=== PATIENT | male | born 1950 | race Caucasian/White ===

== ENCOUNTER 2018-10-06 11:45 | Day surgery (SDC) | payer MEDICARE, OTHER ==
[~2018-10-06] VITALS: Ht 182.9 cm; Wt 114.8 kg
[~2018-10-06 11:45] MED LIST: AMLODIPINE-VAL1 EAC1 PO; ASPI325 PO; ASPI81CH PO; Altoprev20 MG PO; GLIM2 PO; INVOKANA300 MG PO; METF500 PO
== END 2018-10-06 13:55 | disposition home or self-care (01) ==
LOC: ORSCSDS 11:45
PROVIDERS: Internal Medicine Gastroenterology
PROC: 0DB88ZX Excision of Small Intestine, Via Natural or Artificial Opening Endoscopic, Diagnostic (ICD-10-PCS; principal; 2018-10-06 13:00)
PROC: 0DB58ZX Excision of Esophagus, Via Natural or Artificial Opening Endoscopic, Diagnostic (ICD-10-PCS; principal; 2018-10-06 13:00)
PROC: 0D758ZZ Dilation of Esophagus, Via Natural or Artificial Opening Endoscopic (ICD-10-PCS; principal; 2018-10-06 13:00)
DX: K21.9 Gastro-esophageal reflux disease without esophagitis (principal); R11.2 Nausea with vomiting, unspecified; I10 Essential (primary) hypertension; E66.9 Obesity, unspecified; Z68.34 Body mass index [BMI] 34.0-34.9, adult; Z79.82 Long term (current) use of aspirin; Z79.84 Long term (current) use of oral hypoglycemic drugs; Z79.899 Other long term (current) drug therapy
CPT/HCPCS: 82947; 87081; 88305; J2250; J7120

== ENCOUNTER 2021-02-20 08:02 | Day surgery (SDC) | payer MEDICARE ==
[~2021-02-20] VITALS: Ht 182.9 cm; Wt 110.4 kg
--- NOTE | 2021-02-20 09:35 | NUR ---
02/20/21 0935 Beverly Mendoza PER PT. HE DOESN'T TOLERATED USING A CPAP. PT. DOESN'T USE O2.
== END 2021-02-20 11:00 | disposition home or self-care (01) ==
LOC: ORSCSDS 08:02
PROVIDERS: Internal Medicine Gastroenterology
PROC: 0DBH8ZX Excision of Cecum, Via Natural or Artificial Opening Endoscopic, Diagnostic (ICD-10-PCS; principal; 2021-02-20 09:45)
PROC: 0DBM8ZX Excision of Descending Colon, Via Natural or Artificial Opening Endoscopic, Diagnostic (ICD-10-PCS; principal; 2021-02-20 09:45)
DX: Z12.11 Encounter for screening for malignant neoplasm of colon (principal); Z86.010 Personal history of colon polyps; D12.0 Benign neoplasm of cecum; D12.4 Benign neoplasm of descending colon; K57.30 Diverticulosis of large intestine without perforation or abscess without bleeding; K64.8 Other hemorrhoids; G47.33 Obstructive sleep apnea (adult) (pediatric); E11.9 Type 2 diabetes mellitus without complications; E78.5 Hyperlipidemia, unspecified; I10 Essential (primary) hypertension; Z79.899 Other long term (current) drug therapy; Z79.82 Long term (current) use of aspirin; Z79.84 Long term (current) use of oral hypoglycemic drugs
CPT/HCPCS: 82947; 88305; J2704; J7120

== ENCOUNTER 2023-06-30 11:23 | Emergency (ER) | payer MEDICARE ==
[~2023-06-30] VITALS: Ht 182.9 cm; Wt 108.0 kg
[2023-06-30 11:34] VITALS: BP 123/90
[2023-06-30] MEDS ORDERED: Norco 5-325 Ta1 EACH PO (12:55)
== END 2023-06-30 13:08 | disposition home or self-care (01) ==
LOC: ER 11:23
DX: S39.012A Strain of muscle, fascia and tendon of lower back, initial encounter (principal); Z88.0 Allergy status to penicillin; Z88.2 Allergy status to sulfonamides; Z88.4 Allergy status to anesthetic agent; Z79.84 Long term (current) use of oral hypoglycemic drugs; Z79.899 Other long term (current) drug therapy; X50.0XXA Overexertion from strenuous movement or load, initial encounter
CPT/HCPCS: 99283; A9270

== ENCOUNTER 2023-07-22 06:08 | Inpatient (IN) | payer MEDICARE ==
[~2023-07-22] VITALS: Ht 182.9 cm; Wt 100.6 kg
[~2023-07-22 06:08] MED LIST changes: +Norco 5-325 Ta1 EACH PO
[2023-07-22 06:42] LABS: BASOPHILS ABSOLUTE AUTO 0.13 K/mm3 (0.00-0.23); BASOPHILS PERCENT AUTO 1 % (0-2); EOSINOPHILS ABSOLUTE AUTO 0.06 K/mm3 (0.00-0.68); EOSINOPHILS PERCENT AUTO 0 % (0-6); Hematocrit 49.7 % (37.0-53.0); Hemoglobin 17.5 g/dL (13.5-17.5); IMMATURE GRAN ABSOLUTE AUTO 0.14 K/mm3 (0.00-0.10); IMMATURE GRAN PERCENT AUTO 1 % (0-1); LYMPHOCYTES PERCENT AUTO 16 % (21-46); MONOCYTES ABSOLUTE AUTO 1.69 K/mm3 (0.16-1.47); MONOCYTES PERCENT AUTO 8 % (4-13); Mean Corpuscular HGB 30.2 pg (26.0-34.0); Mean Corpuscular HGB Conc 35.2 g/dL (31.5-36.5); Mean Corpuscular Volume 86 fL (80-100); Mean Platelet Volume 9.4 fL (9.1-12.4); NEUTROPHILS ABSOLUTE AUTO 16.07 K/mm3 (1.96-9.15); NEUTROPHILS PERCENT AUTO 75 % (41-73); Platelet Count 328 K/mm3 (150-400); RDW Coefficient Variation 12.4 % (11.7-14.2); RDW Standard Deviation 38.3 fL (35.1-46.3); White Blood Cell Count 21.59 K/mm3 (4.00-11.30)
[2023-07-22 07:04] LABS: Albumin, Blood 3.9 g/dL (3.4-5.0); Bun/Creatinine Ratio 23.7 (12.0-20.0); Calcium, Blood 9.2 mg/dL (8.5-10.1); Creatinine, Blood 1.39 mg/dL (0.60-1.20); Globulin, Blood 4.1 g/dL (2.2-4.0); Potassium, Blood 3.8 mmol/L (3.5-5.5)
[2023-07-22] MEDS ORDERED: PRAVASTATIN SOD20 MG PO (09:47)
[2023-07-22] MEDS ORDERED: TRULICITY0.75 MG/01 SQ (09:47)
[2023-07-22] MEDS ORDERED: DULO30 PO (09:48)
[2023-07-22] MEDS ORDERED: TAMSULOSIN HCL0.4 M1 PO (09:48)
[2023-07-22] MEDS ORDERED: GLIM4 PO (09:49)
[2023-07-22 13:51] LABS: Source, Urine Clean Catch
[2023-07-22 13:58] LABS: Appearance, Urine Clear (Clear); Bilirubin, Urine Neg (Neg); Blood, Urine Neg (Neg); Color, Urine Yellow (P-Yellow); Glucose Qualitative, Urine 2+ (Neg); Ketones, Urine Neg (Neg); Leukocyte Esterase, Urine 2+ (Neg); Nitrite, Urine Neg (Neg); Protein, Urine 1+ (Neg); Urobilinogen, Urine NORM (Normal)
[2023-07-22 14:11] LABS: Bacteria Few /hpf; Red Blood Cells, Urine 0-2 /hpf (0-2); Squamous Epithelial Cells Few /hpf (Few); Transitional Epithelial Cells Rare /hpf (0-Rare)
[2023-07-22 16:08] VITALS: BP 109/64
[2023-07-22] MEDS ORDERED: OMEP20ER PO (16:34)
[2023-07-22] MEDS ORDERED: Glucotrol10 MG PO (16:35)
[2023-07-22] MEDS ORDERED: BASAGLAR K100 UNIT/1 SC (16:39)
--- NOTE | 2023-07-22 17:56 | NUR ---
PT ADMITTED THIS EVENING TO PCU O7 FROM THE ER. THIS PT IS A&OX4, CALLS APPROPRITELY, AND WAS ABLE TO ANSWERT ALL OF HIS MEDICAL HX QUESTIONS. I DID HAVE TO TALK TO HIS NBA FOR AN UPDATED MEDICATION IST, AND DR. SMITH WAS NOTIFIED ONCE THE MEDICATIONS WERE RECONCILED. THE PT WAS STARTED ON ROCEPHIN FOR ANTIBIOTICS, BTU HE DOSE REPORT A CHILD COTTER ALLERGY TO PENICILLINS. I CALLED PHARMACY AND THEY STATED THAT ROCEPHIN SHOULD BE FINE BECAUSE IT IS DISTANT FROM PENICILLIN AND THE PT REPORTED HAVING NO REACTION TO AMOXICILLIN. SINCE BEING IN PCU THE PT HAS NOT HAD ANY ANGINA, ON TELE HE HAS BEEN ST 100'S. WHEN TAKING A DEEP BREATH HE HAD A SHARP PAIN IN HIS CHEST BUT THAT WAS RELATED TO TAKING A DEEP BREATHING. PT DENIES ANY SOB AND IS ON RA, SP02 >90%. HE WILL BE NPO AT 0000, BESIDES ICE CHIPS FOR A STRESS TEST TOMORROW. PT NOTIFIED.
[2023-07-22 20:32] VITALS: BP 129/74
[2023-07-22 23:47] VITALS: BP 103/75
[2023-07-23] VITALS (16 sets, daily range): BP systolic 99–144; BP diastolic 65–108
[2023-07-23 01:27] LABS: BASOPHILS ABSOLUTE AUTO 0.08 K/mm3 (0.00-0.23); BASOPHILS PERCENT AUTO 1 % (0-2); EOSINOPHILS ABSOLUTE AUTO 0.06 K/mm3 (0.00-0.68); EOSINOPHILS PERCENT AUTO 0 % (0-6); Hematocrit 42.2 % (37.0-53.0); Hemoglobin 14.9 g/dL (13.5-17.5); IMMATURE GRAN ABSOLUTE AUTO 0.11 K/mm3 (0.00-0.10); IMMATURE GRAN PERCENT AUTO 1 % (0-1); LYMPHOCYTES ABSOLUTE AUTO 2.64 K/mm3 (0.84-5.20); LYMPHOCYTES PERCENT AUTO 16 % (21-46); MONOCYTES ABSOLUTE AUTO 1.57 K/mm3 (0.16-1.47); MONOCYTES PERCENT AUTO 10 % (4-13); Mean Corpuscular HGB 30.4 pg (26.0-34.0); Mean Corpuscular HGB Conc 35.3 g/dL (31.5-36.5); Mean Corpuscular Volume 86 fL (80-100); Mean Platelet Volume 9.5 fL (9.1-12.4); NEUTROPHILS ABSOLUTE AUTO 12.05 K/mm3 (1.96-9.15); NEUTROPHILS PERCENT AUTO 73 % (41-73); Platelet Count 252 K/mm3 (150-400); RDW Coefficient Variation 12.3 % (11.7-14.2); RDW Standard Deviation 38.4 fL (35.1-46.3); White Blood Cell Count 16.51 K/mm3 (4.00-11.30)
[2023-07-23 01:53] LABS: Bun/Creatinine Ratio 26.7 (12.0-20.0); Calcium, Blood 8.5 mg/dL (8.5-10.1); Creatinine, Blood 1.46 mg/dL (0.60-1.20); Potassium, Blood 3.6 mmol/L (3.5-5.5)
--- NOTE | 2023-07-23 02:16 | NUR ---
PHYSICIAN COMMUNICATION CONTACTED ROADABILITY MACHINE OPERATOR RESIDENT, DR Hallman, TO NOTIFY HER THAT THE PATIENT CONVERTED FROM SINUS RHYTHM TO AFIB AT 0149 AND HTAT THE PATIENT'S HEART RATE HAS BEEN SUSTAINING IN THE 130'S. DR Ramos ORDERED A ONE TIME DOSE OF 5 MG IV LOPRESSOR.
--- NOTE | 2023-07-23 03:48 | NUR ---
PHYSICIAN COMMUNICATION CONTACTED DOG WARDEN RESIDENT, DR Hallman, AT 0241 TO NOTIFY HER THAT THIS RN ADMINISTERED THE 5 MG IV LOPRESSOR ABOUT 15 MINUTES PRIOR AND THAT THE PATIENT'S HEART RATE HAD REMAINED UNCHANGED AND PATIENT'S HEART RATE WAS STABLE. DR Ramos ORDERED ANOTHER ONE TIME DOSE OF 5 MG LOPRESSOR AND AN EKG. EKG VERIFIED THE PATIENT IS IN AFIB WITH RVR, SECOND DOSE OF LOPRESSOR ADMINISTERED AT [address]. CALL[address] DR Ramos AGAIN AROUND O345 TO NOTIFY HER OF THE RESULT OF THE EKG AND THAT THE SECOND DOSE OF LOPRESSOR WAS AGAIN INEFFECTIVE FOR THE PATIENT'S HEART RATE, STILL AVERAGING IN THE 130'S, AND THAT THE PATIENT'S BLOOD PRESSURE WAS 108/86. PATIENT CONTINUES TO BE ASYMPTOMATIC. DR Hallman DID NOT FEEL COMFORTABLE WITH ORDERING MORE MEDICATION SHE DOESN'T WANT THE PATIENT'S BLOOD PRESSURE TO DROP FURTHER AND TO CONTINUE TO MONITOR THE PATIENT FOR NOW. SHE ALSO SAID TO NOTIFY IF THE HEART RATE INCREASES.
--- NOTE | 2023-07-23 05:49 | NUR ---
PHYSICIAN COMMUNICATION CONTACTED RECREATION PROGRAM COORDINATOR RESIDENT, DR Hallman, TO NOTIFY HER THAT THE PATIENT'S HEART RATE IS SUSTAINING IN THE 140'S WITH BP OF 115/75. ALSO INFORMED HER THAT THE PATIENT'S CHEST PAIN HAS CHANGED FROM ONLY OCCURRING WITH DEEP BREATHS TO CONSTANT. DR Ramos SAID TO ADMINISTER THE PATIENT'S PRN MORPHINE. ASKED DR Hallman IF SHE WAS GOING TO ORDER SOMETHING FOR THE PATIENT'S HEART RATE AND SHE SAID NO, THAT SHE DIDN'T WANT TO TANK THE PATIENT'S BLOOD PRESSURE.
--- NOTE | 2023-07-23 06:14 | NUR ---
PHYSICIAN COMMUNICATION CONTACTED DR CUENCA TO UPDATE HIM ON THE PATIENT'S HEART RATE AND WHAT HAS BEEN TRIED THUS FAR. INFORMED HIM THAT THE PATIENT'S CHEST PAIN HAS GONE FROM OCCURRING ONLY WHEN HE TAKES A DEEP BREATH TO CONSTANT AND THAT THE PATIENT HAS REQUIRED TWO DOSES OF MORPHINE FOR THE PAIN. THAT THE PATIENT IS SCHEDULED FOR A STRESS TEST THIS MORNING WELL. DR CUENCA SAID HE WOULD LOOK UP THE PATIENT AND INPUT ORDERS.
--- NOTE | 2023-07-23 07:20 | NUR ---
I CALLED DR. SMITH ABOUT THE PT CONVERTING TO AFIB RVR AND ANGINA. SHE WANTS TO DO A REPEAT TROPONIN AND SHE IS GOING TO TALK TO DR. FENTON THIS AM. DR. SMITH STATED SHE IS GOING TO MAKE SOME MEDICATION CHANGES TO THE EMAR. SEE NOTES FOR ANY UPDATES.
[2023-07-23 08:33] LABS: Magnesium, Blood 2.3 mg/dL (1.6-2.4); Thyroid Stimulating Hormone 1.35 uIU/mL (0.360-4.800)
--- NOTE | 2023-07-23 11:03 | NUR ---
I CALLED DR. SMITH ABOUT PT'S HR SUSTAINING 90'S-100'S SHE SAID SHE DOESNT WANT TO SWITCH TO PO CARDIZEM BECAUSE SHE IS HOPING THE METOPROLOL WILL HOLD THE HR. SHE WANTS US HOLD THE CARDIZEM FOR NOW AND RESTART IT IF THE HR STARTS TACHING BACK UP.
--- NOTE | 2023-07-23 12:49 | NUR ---
PT'S HR ELEVATES W/ ACTIVITY HE AMBULATED TO THE BATHROOM AND HIS HR TOUCHED TO THE 140'S. DR. SMITH CAME TO CHECK ON THE PT AT THIS TIME AND DID NOT WANT HIM BACK ON THE CARDIZE BUT DID WANT A ONE TIME ORDER OF 25MG METOPROLOL SUCCINATE NOW. DR. SMITH SAID THAT WE WILL DO A ONE DAY STRESS TEST TOMORROW AND THE PT WILL BE NPO AT 0000. RODOLFO FROM [facility] SAID THE PT WILL BE INJECTED AT 0800.
--- NOTE | 2023-07-23 14:57 | NUR ---
PT CONVERTED AFIB TO SR ABOUT 1450 THIS AFTERNOON.
--- NOTE | 2023-07-23 17:45 | NUR ---
SPOKE WITH DR SMITH IN PERSON ABOUT MEDS. DR. SMITH CAME TO CHECK ON THE PT AND SHE WAS INFORMED THAT HE CONVERTED TO SR AT ABOUT 1500. SHE WANTED TO SE WHAT HIS HR DID WHEN HE AMBULATED AND TOLD ME TO D/C TO CARDIZEM IF HIS HR WAS UNCHANGED. I AMBULATED THE PT AROUND HIS ROOM AND HAD HIM IND USE THE URINAL IN THE BATHROOM AND HIS HR TOUCH 105 MAX W/ NO REPORTS OF ANGINA. PER MD ORDERS THE PO CARDIZEM WAS D/C'D. IT WAS ONLY ORDERED BECAUSE SHE WAS UNDER THE IMPRESSION THE PT WAS STILL ON THE CARDIZEM GTT AND STILL IN AFIB RVR. THE PLAN IS STILL FOR THE STRESS TEST TOMORROW.
--- NOTE | 2023-07-23 17:51 | NUR ---
SHIFT SUMMARY PT IS A&OX4, CALLS APPROPRAITELY, AND MAKES NEEDS KNOWN. WE HAVE HAD NO ANGINA TODAY AND ARE IN SR 80'S-90'S ON TELE. WE CONVERTED TO SR FROM AFIB ABOUT 1500. WE HAVE HAVE A FEW MEDICATION CHANGES, SEE PREVIOUS NOTES AND EMAR FOR MORE INFORMATION. THE PLAN IS FOR NPO AT 0000 AND STRESS TEST 12/8. THEY ARE GOING TO DO A ONE DAY STRESS TEST AND WILL INJECT THE PT AT 0800. THE PT CAN HAVE WATER AND ICE CHIPS PAST 0000. HE HAS BEEN ON RA W/ SP02 >90%. FIRE IGNITION RISK HAS BEEN ASSESSED AND EDUCATION HAS BEEN PROVIDED.
[2023-07-24] VITALS: BP 115/73
[2023-07-24 03:58] VITALS: BP 115/80
[2023-07-24 04:39] LABS: BASOPHILS ABSOLUTE AUTO 0.08 K/mm3 (0.00-0.23); BASOPHILS PERCENT AUTO 1 % (0-2); EOSINOPHILS ABSOLUTE AUTO 0.09 K/mm3 (0.00-0.68); EOSINOPHILS PERCENT AUTO 1 % (0-6); Hematocrit 43.8 % (37.0-53.0); Hemoglobin 15.3 g/dL (13.5-17.5); IMMATURE GRAN PERCENT AUTO 1 % (0-1); LYMPHOCYTES ABSOLUTE AUTO 2.65 K/mm3 (0.84-5.20); LYMPHOCYTES PERCENT AUTO 21 % (21-46); MONOCYTES PERCENT AUTO 9 % (4-13); Mean Corpuscular HGB 30.2 pg (26.0-34.0); Mean Corpuscular HGB Conc 34.9 g/dL (31.5-36.5); Mean Corpuscular Volume 87 fL (80-100); Mean Platelet Volume 9.7 fL (9.1-12.4); NEUTROPHILS ABSOLUTE AUTO 8.78 K/mm3 (1.96-9.15); NEUTROPHILS PERCENT AUTO 68 % (41-73); Platelet Count 280 K/mm3 (150-400); RDW Coefficient Variation 12.2 % (11.7-14.2); RDW Standard Deviation 38.5 fL (35.1-46.3); Red Blood Cell Count 5.06 M/mm3 (4.30-5.90)
[2023-07-24 05:18] LABS: Albumin/Globulin Ratio 0.8 (0.8-1.8); Bilirubin, Total 0.7 mg/dL (0.1-1.0); Bun/Creatinine Ratio 27.6 (12.0-20.0); Calcium, Blood 8.9 mg/dL (8.5-10.1); Creatinine, Blood 1.23 mg/dL (0.60-1.20); Potassium, Blood 4.3 mmol/L (3.5-5.5)
--- NOTE | 2023-07-24 06:18 | NUR ---
SHIFT SUMMARY PATIENT ALERT AND ORIENTED X4. INDEPENDENT TO THE RESTROOM. HAD NO COMPLAINTS OF PAIN OR SHORTNESS OF BREATH. ON ROOM AIR WITH SPO2 >90%. BLOOD PRESSURE STABLE, SINUS RHYTHM ON TELE IN 80'S. NO ACUTE ISSUES NOTED OVERNIGHT. WILL CONTINUE TO MONITOR. CALL LIGHT WITHIN REACH.
[2023-07-24 08:16] VITALS: BP 126/85
[2023-07-24 12:17] VITALS: BP 122/75
[2023-07-24 15:38] VITALS: BP 140/87
--- NOTE | 2023-07-24 18:18 | NUR ---
REPEAT EKG PERFORMED THIS AFTERNOON THE EKG FLAGGED WITH ST ELEVATION, NOTED ELEVATION IS NOT CHANGED FROM LAST EKG IN CHART FROM ER. HE DENIES CP T/O THE DAY, DENIES SOB. HE IS A/O X3. VSS. HE WILL GO FOR ANGIO TOMORROW HE HAD AN ABNORMAL STRESS TEST TODAY, HE WILL BE NPO AT MIDNIGHT HE IS AWARE OF THIS. BLOOD SUGARS HAVE REQUIRED COVERAGE T/O THE DAY. HE HAS BEEN REESTING WELL WATHCING TV, ABLE TO USE CALL LIGHT APPROPRIATELY. NO ACUTE CHANGES NOTED TODAY.
[2023-07-24 21:45] VITALS: BP 130/78
[2023-07-25] VITALS (12 sets, daily range): BP systolic 128–163; BP diastolic 79–114
[2023-07-25 04:39] LABS: BASOPHILS ABSOLUTE AUTO 0.07 K/mm3 (0.00-0.23); BASOPHILS PERCENT AUTO 1 % (0-2); EOSINOPHILS ABSOLUTE AUTO 0.11 K/mm3 (0.00-0.68); EOSINOPHILS PERCENT AUTO 1 % (0-6); Hematocrit 43.3 % (37.0-53.0); Hemoglobin 15.2 g/dL (13.5-17.5); IMMATURE GRAN ABSOLUTE AUTO 0.08 K/mm3 (0.00-0.10); IMMATURE GRAN PERCENT AUTO 1 % (0-1); LYMPHOCYTES ABSOLUTE AUTO 2.69 K/mm3 (0.84-5.20); LYMPHOCYTES PERCENT AUTO 21 % (21-46); MONOCYTES ABSOLUTE AUTO 1.19 K/mm3 (0.16-1.47); MONOCYTES PERCENT AUTO 9 % (4-13); Mean Corpuscular HGB Conc 35.1 g/dL (31.5-36.5); Mean Corpuscular Volume 85 fL (80-100); Mean Platelet Volume 9.9 fL (9.1-12.4); NEUTROPHILS ABSOLUTE AUTO 8.55 K/mm3 (1.96-9.15); NEUTROPHILS PERCENT AUTO 67 % (41-73); Platelet Count 306 K/mm3 (150-400); RDW Coefficient Variation 12.1 % (11.7-14.2); RDW Standard Deviation 37.2 fL (35.1-46.3); Red Blood Cell Count 5.07 M/mm3 (4.30-5.90); White Blood Cell Count 12.69 K/mm3 (4.00-11.30)
[2023-07-25 05:03] LABS: Bun/Creatinine Ratio 29.4 (12.0-20.0); Calcium, Blood 8.9 mg/dL (8.5-10.1); Creatinine, Blood 1.09 mg/dL (0.60-1.20); Potassium, Blood 3.9 mmol/L (3.5-5.5)
--- NOTE | 2023-07-25 06:56 | NUR ---
SHIFT SUMMARY PATIENT ALERT AND ORIENTD X3. VERY WEAK, REQUIRING Q2 TURNS FOR REDNESS ON COCCYX, AREA BLANCHABLE, MEPILEX IN PLACE. ON 3 LITERS O2 VIA NASAL CANULA WITH SPO2 94%. DENIES CHEST PAIN AND SHORTNESS OF BREATH. BLOOD PRESSURE IS HYPOTENSIVE, MAP > 65. AFIB ON TELE 100-140'S. GENERALLY 110'S WHILE SLEEPING AND ICREASES TO 120'S - 140'S WHILE AWAKE. MEDICATED PATIENT WITH IV LOPRESSER PER EMAR NEEDED. PATIENT HAD SEVERAL LOOSE, DARK STOOLS. WILL CONTINUE TO MONITOR. CALL LIGHT WITHIN REACH.
[2023-07-25] MEDS ORDERED: ASPI81CH (15:36)
[2023-07-25] MEDS ORDERED: ATOR40TA PO (15:36)
[2023-07-25] MEDS ORDERED: ELIQUIS5 M2 PO (15:37)
[2023-07-25] MEDS ORDERED: METO50ER PO (15:37)
[2023-07-25] MEDS ORDERED: LISI5 PO (15:38)
[2023-07-25] MEDS ORDERED: NITR.4SL (15:39)
--- NOTE | 2023-07-25 16:14 | NUR ---
PT'S TR BAND WAS RECOVERED SUCCESSFULLY, THERE IS NO BLEEDING, FULL ROM OF RIGHT HAND. NO HEMATOMA NOTED. STRONG PULSES PALPATED, SKIN PWD AND INTACT. TEGADERM PLACED, ARMBOARD REMAINS IN PLACE. PT AND SPOUSE EXPRESSED UNDERSTANDING OF DC TEACHING AND DENIES ANY FURTHER QUESTIONS
== END 2023-07-25 16:11 | disposition home or self-care (01) | DRG 287 ==
LOC: ER 06:08 → PCU 06:09 → ERHOLD 06:09 → PCU 15:59
PROVIDERS: Family Medicine; Student in an Organized Health Care Education/Training Program; ADMIT Internal Medicine
PROC: B2111ZZ Fluoroscopy of Multiple Coronary Arteries using Low Osmolar Contrast (ICD-10-PCS; principal; 2023-07-25)
PROC: 4A023N7 Measurement of Cardiac Sampling and Pressure, Left Heart, Percutaneous Approach (ICD-10-PCS; 2023-07-25)
DX: I25.10 Atherosclerotic heart disease of native coronary artery without angina pectoris (principal); E87.1 Hypo-osmolality and hyponatremia; N17.9 Acute kidney failure, unspecified; I48.0 Paroxysmal atrial fibrillation; R07.9 Chest pain, unspecified; D72.829 Elevated white blood cell count, unspecified; N18.30 Chronic kidney disease, stage 3 unspecified; I12.9 Hypertensive chronic kidney disease with stage 1 through stage 4 chronic kidney disease, or unspecified chronic kidney disease; E11.22 Type 2 diabetes mellitus with diabetic chronic kidney disease; E78.5 Hyperlipidemia, unspecified; G25.81 Restless legs syndrome; E11.42 Type 2 diabetes mellitus with diabetic polyneuropathy; E11.65 Type 2 diabetes mellitus with hyperglycemia; Z88.0 Allergy status to penicillin; Z88.2 Allergy status to sulfonamides; Z79.84 Long term (current) use of oral hypoglycemic drugs; Z79.899 Other long term (current) drug therapy; Z79.891 Long term (current) use of opiate analgesic; Z88.8 Allergy status to other drugs, medicaments and biological substances; Z98.890 Other specified postprocedural states; Z82.49 Family history of ischemic heart disease and other diseases of the circulatory system
CPT/HCPCS: 36415; 71046; 71260; 76937; 78452; 80048; 80053; 81001; 82947; 83735; 84443; 84484; 85025; 85379; 87040; 87086; 93005; 93010; 93017; 93306; 93454; 96360; 96361; 96365; 96366; 96367; 96372; 96375; 96376; 99152; 99153; 99285-25; A9270; A9500; C1769; C1887; C1894; G0378; J0696; J1644; J1815; J2250; J2270; J2405; J2785; J3010; J7030; J7050; Q9967

== ENCOUNTER → 2025-01-11 | Outpatient (CLI) | payer MEDICARE ==
[~2025-01-11] MED LIST changes: +ASPI81CH; +ATOR40TA PO; +BASAGLAR K100 UNIT/1 SC; +DULO30 PO; +ELIQUIS5 M2 PO; +GLIM4 PO; +Glucotrol10 MG PO; +LISI5 PO; +METO50ER PO; +NITR.4SL; +OMEP20ER PO; +PRAVASTATIN SOD20 MG PO; +TAMSULOSIN HCL0.4 M1 PO; +TRULICITY0.75 MG/01 SQ
== END | disposition home or self-care (01) ==
LOC: LAB SHORT 17:28 → LAB 17:28
DX: L08.9 Local infection of the skin and subcutaneous tissue, unspecified (principal)
CPT/HCPCS: 87070; 87075; 87205